=== PATIENT | female | born 2000 | race Caucasian/White ===

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

== ENCOUNTER 2021-10-01 13:43 | Emergency (ER) | payer OTHER ==
[~2021-10-01] VITALS: Ht 154.9 cm; Wt 60.0 kg
[2021-10-01 13:50] VITALS: BP 113/66
[2021-10-01] MEDS: ACETAMINOPHEN EXTRA STRENGTH 500 MG TAB PO ONE (14:04)
--- NOTE | 2021-10-01 14:24 | NUR ---
Dr. Sevilla at bedside evaluating patient.
--- NOTE | 2021-10-01 14:29 | NUR ---
21 y/o female came in for headache. Patient has a 8/10 pounding headache to the top of the head. Patient took Ibuprofen 400 mg at 0500 today. Patient also states she had night sweats and and weakness along with the headache today. Medical history: Migraines NKDA
[2021-10-01] MEDS: NACL 0.9% 1,000 ML IV ONE (14:40)
[2021-10-01] MEDS: KETOROLAC 30 MG/ML VIAL IVP ONE (14:40)
[2021-10-01] MEDS ORDERED: TAM75 PO (14:57)
[2021-10-01] MEDS ORDERED: IBUP-2213 PO (14:57)
[2021-10-01] MEDS ORDERED: ACET-8386 PO (14:57)
[2021-10-01 15:26] VITALS: BP 113/66
--- NOTE | 2021-10-01 15:27 | NUR ---
Patient discharged with v/s stable. Written and verbal after care instructions given. Patient alert, oriented and verbalized understanding of instructions. Ambulatory with steady gait. All questions addressed prior to discharge. ID band removed. Patient advised to follow up with PMD. Rx of norco, ibuprofen and tamiflu given. Opportunity to ask questions provided and answered. Work note handed to patient.
--- NOTE | 2021-10-01 15:27 | NUR ---
Chart checked and completed. The patient's care was reviewed and supervised by Mono Cook RN.
== END 2021-10-01 15:27 | disposition home or self-care (01) ==
LOC: MED 13:43
DX: R51.9 Headache, unspecified (principal); M79.10 Myalgia, unspecified site; R50.9 Fever, unspecified; Z79.899 Other long term (current) drug therapy
CPT/HCPCS: 81002; 81025; 96361; 96374; 99283; J1885; J7030

== ENCOUNTER 2021-11-11 11:13 | Emergency (ER) | payer OTHER ==
[~2021-11-11] VITALS: Ht 154.9 cm; Wt 61.0 kg
[~2021-11-11 11:13] MED LIST: ACET-8386 PO; IBUP-2213 PO; TAM75 PO
[2021-11-11 11:25] VITALS: BP 113/74
[2021-11-11] MEDS ORDERED: LIDOCAINE MPF 1% 10 MG/ML VIAL INJ ONE ×2 (12:00→12:30)
--- NOTE | 2021-11-11 12:20 | NUR ---
21 Y/O BIB SELF C/O RT EAR PRESSURE TYPE PAIN RATED 7/10 SINCE TUESDAY. PT STATES BACK EARRING IS STUCK IN EARLOBE. PT DENIES MELVIN. PT DENIES FEVER OR CHILLS. MEDHX: DENIES NKA
[2021-11-11] MEDS ORDERED: CEPH-588 PO (12:47)
[2021-11-11 13:04] VITALS: BP 113/74
== END 2021-11-11 13:05 | disposition home or self-care (01) ==
LOC: MED 11:13
DX: T16.1XXA Foreign body in right ear, initial encounter (principal); Z79.899 Other long term (current) drug therapy; X58.XXXA Exposure to other specified factors, initial encounter; Y93.89 Activity, other specified; Y92.89 Other specified places as the place of occurrence of the external cause; Y99.8 Other external cause status
CPT/HCPCS: 90471; 90715; 99284; J2001

== ENCOUNTER 2022-03-25 01:05 | Emergency (ER) | payer OTHER ==
[~2022-03-25] VITALS: Ht 154.9 cm; Wt 68.0 kg
[~2022-03-25 01:05] MED LIST changes: +CEPH-588 PO
[2022-03-25 01:14] VITALS: BP 111/71
--- NOTE | 2022-03-25 01:24 | NUR ---
TP LOBBY FOLLOWING TRIAGE
--- NOTE | 2022-03-25 04:32 | NUR ---
Called - no show in lobby or outside.
--- NOTE | 2022-03-25 04:40 | NUR ---
Dr. Jimenes examining patient.
[2022-03-25] MEDS ORDERED: FLONAS NS (06:17)
[2022-03-25] MEDS ORDERED: NAPR-54 PO (06:17)
[2022-03-25] MEDS: DEXAMETHASONE 10 MG/ML VIAL PO ONE (06:24)
[2022-03-25 06:42] VITALS: BP 122/71
--- NOTE | 2022-03-25 06:42 | NUR ---
Patient discharged with v/s stable. Written and verbal after care instructions given and explained. Patient alert, oriented and verbalized understanding of instructions. Ambulatory with steady gait. All questions addressed prior to discharge. ID band removed. Patient advised to follow up with PMD. Rx of Flonase Nasal and Naprosyn given. Patient educated on indication of medication including possible reaction and side effects. Opportunity to ask questions provided and answered.
== END 2022-03-25 06:42 | disposition home or self-care (01) ==
LOC: MED 01:05
DX: J06.9 Acute upper respiratory infection, unspecified (principal); Z20.822 Contact with and (suspected) exposure to COVID-19; Z79.899 Other long term (current) drug therapy; Z79.1 Long term (current) use of non-steroidal anti-inflammatories (NSAID); Z79.2 Long term (current) use of antibiotics; Z79.891 Long term (current) use of opiate analgesic
CPT/HCPCS: 71045; 87081; 87426; 87804; 99284; J1100

== ENCOUNTER 2022-08-14 14:46 | Emergency (ER) | payer OTHER ==
[~2022-08-14] VITALS: Ht 154.9 cm; Wt 59.9 kg
[~2022-08-14 14:46] MED LIST changes: -ACET-8386 PO; +ACET-8905 PO; +FLONAS NS; +NAPR-54 PO
[2022-08-14 14:59] VITALS: BP 111/71
--- NOTE | 2022-08-14 16:20 | NUR ---
22 Y/O FEMALE BIB SELF C/O SYNCOPE WHEN SHE WAS HIKING, PER PT SHE WAS DOWN FOR AROUND 20MIN, DENIES HITTING HEAD NKA PMH: DENIES
[2022-08-14 16:37] VITALS: BP 98/63
--- NOTE | 2022-08-14 16:44 | NUR ---
Patient discharged with v/s stable. Written and verbal after care instructions given ABOUT SYNCOPE AND HYPOGLYCEMIA and explained. Patient verbalized understanding. Ambulatory with steady gait. All questions addressed prior to discharge. Advised to follow up with PMD.
== END 2022-08-14 16:44 | disposition home or self-care (01) ==
LOC: MED 14:46
DX: R55 Syncope and collapse (principal)
CPT/HCPCS: 93005; 99283

== ENCOUNTER 2022-09-23 10:38 | Emergency (ER) | payer OTHER ==
[~2022-09-23] VITALS: Ht 149.9 cm; Wt 60.0 kg
[2022-09-23 10:52] VITALS: BP 103/66
[2022-09-23 11:17] LABS: APPEARANCE,URINE CLEAR (CLEAR); BILIRUBIN,URINE NEGATIVE (NEGATIVE); BLOOD, URINE NEGATIVE (NEGATIVE); COLOR,URINE YELLOW (YELLOW); LEUKOCYTE ESTERASE ,URINE NEGATIVE (NEGATIVE); NITRITE, URINE NEGATIVE (NEGATIVE); PH,URINE 5.5 (5.0-9.0); UGLUCOSE NEGATIVE (NEGATIVE)
[2022-09-23 12:03] LABS: BASOPHILS % (AUTO) 0.1 % (0.0-2.0); EOSINOPHILS # (AUTO) 0.1 K/uL (0-0.4); EOSINOPHILS % (AUTO) 1.2 % (0.0-4.0); HEMOGLOBIN 15.3 g/dL (12.0-16.0); LYMPHOCYTES # (AUTO) 0.9 K/uL (2.5-16.5); MEAN CORPUSCULAR HEMOGLOBIN 29 pg (27-31); MEAN CORPUSCULAR HGB CONC 34 g/dL (33-37); MEAN CORPUSCULAR VOLUME 85.7 fL (80-94); MONOCYTES # (AUTO) 0.5 K/uL (0.8-1.0); MONOCYTES % (AUTO) 5.5 % (1.7-9.3); NEUTROPHILS # (AUTO) 7.1 K/uL (1.8-7.7); NEUTROPHILS % (AUTO) 82.2 % (42.2-75.2); PLATELET COUNT (AUTO) 303 K/uL (140-450); RED BLOOD CELL COUNT(AUTO) 5.25 MIL/uL (4.20-5.40); RED CELL DISTRIBUTION WIDTH 13.1 % (11.6-13.7); WHITE BLOOD COUNT (AUTO) 8.6 K/uL (4.8-10.8)
[2022-09-23 12:11] LABS: ALBUMIN 4.7 g/dL (3.4-5.0); ANION GAP 13.2 (8-16); CARBON DIOXIDE 27.8 mmol/L (21-32); CREATININE 0.8 mg/dL (0.6-1.3); TOTAL BILIRUBIN 0.6 mg/dL (0.0-1.0)
--- NOTE | 2022-09-23 13:04 | NUR ---
resting in bed, on phone talking pleasant. says 15 watery stools today, no incontinence
[2022-09-23] MEDS ORDERED: KETOROLAC 15 MG/ML VIAL IVP ONE (13:15)
[2022-09-23] MEDS ORDERED: ONDANSETRON 4 MG/2 ML VIAL IVP ONE (13:15)
[2022-09-23] MEDS ORDERED: NACL 0.9% 1,000 ML IV ONE (13:15)
[2022-09-23] MEDS ORDERED: IBUP-2213 PO (13:30)
== END 2022-09-23 14:41 | disposition home or self-care (01) ==
LOC: MED 10:38
DX: R19.7 Diarrhea, unspecified (principal); E86.0 Dehydration; R10.9 Unspecified abdominal pain; R11.0 Nausea; Z79.899 Other long term (current) drug therapy
CPT/HCPCS: 36415; 80053; 81003; 81025; 85025; 96361; 96374; 96375; 99284; J1885; J2405; J7030

== ENCOUNTER 2022-12-25 21:56 | Emergency (ER) | payer OTHER ==
[~2022-12-25] VITALS: Ht 154.9 cm; Wt 62.1 kg
[2022-12-25 22:04] VITALS: BP 130/74
--- NOTE | 2022-12-25 22:21 | NUR ---
PT TAKEN TO BED 4
--- NOTE | 2022-12-25 22:43 | NUR ---
PT BIBS WITH C/O CHEST PAIN X1 DAY. PT STATES NON RADIATING MID STERNAL TIGHTNESS SENSATION ACCOMPANIED WITH MIGRAINE MELVIN SINCE . PT TOOK MOTRIN TODAY WITH SLIGHT MELVIN RELIEF. PT SAID "I HAVE TO TAKE DEEP BREATHS TO RELIEVE CP". DENIES SOB, COUGH, FEVER, OR CHILLS. PMHX MIGRAINES.
--- NOTE | 2022-12-25 22:45 | NUR ---
Patient being evaluated by ALEJANDRO at bedside.
[2022-12-25] MEDS ORDERED: ALUMINUM HYD/MAG/SIMETHICONE 30 ML UDC PO ONE (22:50)
--- NOTE | 2022-12-25 23:02 | NUR ---
ORAL TEMP 100.4 DR. ALLEN NOTIFIED.
[2022-12-25] MEDS ORDERED: ACETAMINOPHEN 325 MG TAB PO ONE (23:05)
--- NOTE | 2022-12-25 23:16 | NUR ---
KIRSTIN AND FLU SWAB SENT TO LAB.
[2022-12-25 23:26] LABS: HEMATOCRIT 40.3 % (36-48); HEMOGLOBIN 13.8 g/dL (12.0-16.0); MEAN CORPUSCULAR HEMOGLOBIN 29 pg (27-31); MEAN CORPUSCULAR HGB CONC 34 g/dL (33-37); MEAN CORPUSCULAR VOLUME 83.5 fL (80-94); PLATELET COUNT (AUTO) 245 K/uL (140-450); RED BLOOD CELL COUNT(AUTO) 4.83 MIL/uL (4.20-5.40); RED CELL DISTRIBUTION WIDTH 13.3 % (11.6-13.7); WHITE BLOOD COUNT (AUTO) 7.9 K/uL (4.8-10.8)
--- NOTE | 2022-12-25 23:27 | NUR ---
X-Ray at bedside.
[2022-12-25 23:43] LABS: ALBUMIN 3.6 g/dL (3.4-5.0); ASPARTATE AMINOTRANSFERASE 64 U/L (15-37); CARBON DIOXIDE 28.7 mmol/L (21-32); CHLORIDE 102 mmol/L (98-107); CREATININE 0.7 mg/dL (0.6-1.3); GFR ARICAN-AMERICAN 136 mL/min (>90); GLUCOSE 112 mg/dL (74-106); LIPASE 181 U/L (73-393); POTASSIUM 3.7 mmol/L (3.5-5.1); SODIUM SERUM 137 mmol/L (136-145); TOTAL BILIRUBIN 0.2 mg/dL (0.0-1.0); UREA NITROGEN, BLOOD 7 mg/dL (7-18)
[2022-12-25 23:56] LABS: BASOPHILS % (MANUAL) 0 % (0-2); EOSINOPHILS % (MANUAL) 3 % (0-4); LYMPHOCYTES % (MANUAL) 31 % (20-46); MONOCYTES % (MANUAL) 9 % (5-12)
--- NOTE | 2022-12-26 00:03 | NUR ---
PT AMBULATES TO RESTROOM WITH STEADY GAIT.
--- NOTE | 2022-12-26 00:11 | NUR ---
STATES NO CP AT THIS TIME. ORAL TEMP 99.3, NAD, ALL CONCERNS ADDRESSED. FATHER AT BEDSIDE.
--- NOTE | 2022-12-26 02:31 | NUR ---
PT RESTING COMFORTABLY IN [facility], VSS. NO CONCERNS AT THIS TIME. FATHER AT BEDSIDE.
--- NOTE | 2022-12-26 04:12 | NUR ---
PT RESTING IN GURNEY WITH EYES CLOSED. NAD, PT HAS NO QUESTIONS OR CONCERNS AT THIS TIME.
[2022-12-26] MEDS ORDERED: OMEP40EC23 PO (05:47)
[2022-12-26] MEDS ORDERED: SUCR1TAB35 PO (05:47)
--- NOTE | 2022-12-26 06:17 | NUR ---
Patient discharged with v/s stable. Written and verbal after care instructions given and explained. Patient alert, oriented and verbalized understanding of instructions. Ambulatory with mother to car. All questions addressed prior to discharge. ID band removed. Patient advised to follow up with PMD. Rx of Prilosec and Carafate given. Patient educated on indication of medication including possible reaction and side effects. Opportunity to ask questions provided and answered.
[2022-12-26 06:18] VITALS: BP 102/64
== END 2022-12-26 06:17 | disposition home or self-care (01) ==
LOC: MED 21:56
DX: R07.89 Other chest pain (principal); R74.01 Elevation of levels of liver transaminase levels; R10.13 Epigastric pain; G43.909 Migraine, unspecified, not intractable, without status migrainosus; Z79.899 Other long term (current) drug therapy
CPT/HCPCS: 36415; 71045; 76705; 80053; 81025; 83690; 84484; 85025; 86308; 87426; 87804; 99285; Q0092

== ENCOUNTER 2023-05-01 16:39 | Emergency (ER) | payer OTHER ==
[~2023-05-01] VITALS: Ht 154.9 cm; Wt 59.4 kg
[~2023-05-01 16:39] MED LIST changes: +OMEP40EC23 PO; +SUCR1TAB35 PO
[2023-05-01 17:16] VITALS: BP 108/46; PULSE 92; RESP 18; TEMP 98.5; O2SAT 99
[2023-05-01] MEDS ORDERED: LIDOCAINE 5% 1 EA PATCH TP ONE (18:40)
[2023-05-01] MEDS ORDERED: KETOROLAC 30 MG/ML VIAL IM ONE (18:40)
[2023-05-01] MEDS ORDERED: CYCLOBENZAPRINE 10 MG TAB PO ONE (18:40)
[2023-05-01 18:46] LABS: APPEARANCE,URINE CLEAR (CLEAR); BILIRUBIN,URINE NEGATIVE (NEGATIVE); BLOOD, URINE 3+ (NEGATIVE); COLOR,URINE YELLOW (YELLOW); LEUKOCYTE ESTERASE ,URINE NEGATIVE (NEGATIVE); NITRITE, URINE NEGATIVE (NEGATIVE); PH,URINE 5.5 (5.0-9.0); PROTEIN,URINE NEGATIVE (NEGATIVE); UGLUCOSE NEGATIVE (NEGATIVE); UROBILINOGEN,URINE 0.2 EU/dL (0.2 - 1)
[2023-05-01 18:56] LABS: BACTERIA,URINE 1+ /HPF (None Seen); RBC,URINE 20-50 /HPF (0-5); SQUAMOUS EPITHELIAL CELL,UR 4-10 (MOD) /LPF (0-3 (FEW)); WBC,URINE 0-5 /HPF (0-5)
[2023-05-01] MEDS ORDERED: CYCL-711 PO (20:00)
[2023-05-01] MEDS ORDERED: LID5T TP (20:00)
[2023-05-01] MEDS ORDERED: IBUP-2213 PO (20:00)
[2023-05-01 20:08] VITALS: BP 121/74; PULSE 18; RESP 17; TEMP 97; O2SAT 100
== END 2023-05-01 20:09 | disposition home or self-care (01) ==
LOC: MED 16:39
DX: S39.012A Strain of muscle, fascia and tendon of lower back, initial encounter (principal); Z79.899 Other long term (current) drug therapy; Z79.1 Long term (current) use of non-steroidal anti-inflammatories (NSAID); Z79.2 Long term (current) use of antibiotics; X50.0XXA Overexertion from strenuous movement or load, initial encounter; Y92.89 Other specified places as the place of occurrence of the external cause; Y93.89 Activity, other specified; Y99.8 Other external cause status
CPT/HCPCS: 81001; 81025; 96372; 99283; J1885

== ENCOUNTER 2023-10-22 20:29 | Emergency (ER) | payer OTHER ==
[~2023-10-22] VITALS: Ht 154.9 cm; Wt 61.7 kg
[~2023-10-22 20:29] MED LIST changes: +CYCL-711 PO; +LID5T TP
[2023-10-22 20:50] VITALS: BP 128/68; PULSE 78; RESP 17; TEMP 98; O2SAT 99
[2023-10-22] MEDS ORDERED: PIPERACILLIN/TAZOBACTAM 3.375 GM VIAL IV ONE ×2 (22:44→22:48)
[2023-10-22] MEDS: PIPERACILLIN/TAZOBACTAM 3.375 GM in DEXTROSE 5% 50 ML IV ONE (23:03)
[2023-10-23] MEDS ORDERED: NAPR-54 PO (00:23)
[2023-10-23] MEDS ORDERED: CLIN300C2 PO (00:23)
[2023-10-23 00:30] VITALS: BP 128/68; PULSE 78; RESP 17; TEMP 98; O2SAT 99
== END 2023-10-23 00:39 | disposition home or self-care (01) ==
LOC: MED 20:29
DX: L03.113 Cellulitis of right upper limb (principal); Z79.899 Other long term (current) drug therapy
CPT/HCPCS: 36415; 73140; 87040; 90471; 90715; 96365; 99284; J2543

== ENCOUNTER 2024-01-05 13:27 | Emergency (ER) | payer OTHER ==
[~2024-01-05] VITALS: Ht 154.9 cm; Wt 59.4 kg
[~2024-01-05 13:27] MED LIST changes: +CLIN300C2 PO; +NAPR-337 PO; -NAPR-54 PO; +SUCR-3 PO; -SUCR1TAB35 PO
[2024-01-05 13:33] VITALS: BP 114/66; PULSE 113; RESP 19; TEMP 100.1; O2SAT 99
[2024-01-05] MEDS: NACL 0.9% 1,000 ML IV ONE ×2 (14:19→15:21)
[2024-01-05] MEDS: ONDANSETRON 4 MG/2 ML VIAL IVP ONE (14:20)
[2024-01-05] MEDS: KETOROLAC 30 MG/ML VIAL IVP ONE (14:21)
[2024-01-05] MEDS ORDERED: ONDA-188 PO (14:46)
[2024-01-05] MEDS: ACETAMINOPHEN EXTRA STRENGTH 500 MG TAB PO ONE (15:24)
[2024-01-05 15:32] LABS: FLU A ANTIGEN negative (NEGATIVE); FLU B ANTIGEN NEGATIVE (NEGATIVE)
[2024-01-05 17:16] VITALS: BP 96/57; PULSE 69; RESP 18; TEMP 97.8; O2SAT 98
== END 2024-01-05 15:44 | disposition home or self-care (01) ==
LOC: MED 13:27
DX: K52.9 Noninfective gastroenteritis and colitis, unspecified (principal); Z20.822 Contact with and (suspected) exposure to COVID-19; Z79.1 Long term (current) use of non-steroidal anti-inflammatories (NSAID); Z79.2 Long term (current) use of antibiotics; Z79.899 Other long term (current) drug therapy
CPT/HCPCS: 81002; 81025; 82948; 87426; 87804; 96361; 96374; 96375; 99284; J1885; J2405; J7030

== ENCOUNTER 2024-04-11 17:32 | Emergency (ER) | payer OTHER ==
[~2024-04-11] VITALS: Ht 154.9 cm; Wt 61.0 kg
[~2024-04-11 17:32] MED LIST changes: +ONDA-188 PO
[2024-04-11 18:08] VITALS: BP 112/73; PULSE 82; RESP 18; TEMP 97.8; O2SAT 100
[2024-04-11] MEDS ORDERED: IBUP-1842 PO (18:29)
== END 2024-04-11 18:38 | disposition home or self-care (01) ==
LOC: MED 17:32
DX: G56.01 Carpal tunnel syndrome, right upper limb (principal); Z79.899 Other long term (current) drug therapy
CPT/HCPCS: 99282

== ENCOUNTER 2024-05-11 14:36 | Emergency (ER) | payer OTHER ==
[~2024-05-11] VITALS: Ht 154.9 cm; Wt 61.2 kg
[~2024-05-11 14:36] MED LIST changes: +IBUP-1842 PO
[2024-05-11 15:07] VITALS: BP 103/64; PULSE 85; RESP 15; TEMP 98; O2SAT 98
[2024-05-11] MEDS ORDERED: LORA10TA19 PO (15:50)
[2024-05-11] MEDS ORDERED: LORATADINE 10 MG TAB PO SCH (15:50)
[2024-05-11] MEDS ORDERED: IBUP-2213 PO (15:50)
== END 2024-05-11 16:00 | disposition home or self-care (01) ==
LOC: MED 14:36
DX: B30.9 Viral conjunctivitis, unspecified (principal); J06.9 Acute upper respiratory infection, unspecified; Z79.899 Other long term (current) drug therapy
CPT/HCPCS: 99281; 99282